=== PATIENT | male | born 1990 | race Caucasian/White ===

== ENCOUNTER 2021-10-01 00:40 | Emergency (ER) | payer SELFPAY ==
[~2021-10-01] VITALS: Ht 177.8 cm; Wt 70.3 kg
[2021-10-01 01:00] VITALS: BP_SYST 118
--- NOTE | 2021-10-01 01:00 | NUR ---
Patient to ER bed 6 to gown for evaluation. Side rails up. Report given to HILLARY CARRION.
--- NOTE | 2021-10-01 01:07 | NUR ---
ER at bedside examining patient.
--- NOTE | 2021-10-01 01:22 | NUR ---
Pt BIB friend to ED C/O after drinking alcohol earlier presents after having stumbled in his driveway sustaining blunt facial trauma and incurring a laceration to the inner aspect of the upper lip in addition to blunt nasal trauma causing left-sided epistaxis. Patient is with full recall of the events denies loss of consciousness, alteration of consciousness and presents on his own accord for evaluation.
[2021-10-01] MEDS ORDERED: DIPH-TET-PERTUS Vaccine 0.5 ML VIAL (ADACEL) I.M. ONE (01:30)
[2021-10-01] MEDS ORDERED: ACET12.55 PO (01:34)
[2021-10-01] MEDS ORDERED: CLIN300C12 PO (01:34)
--- NOTE | 2021-10-01 01:37 | NUR ---
T Dap Vac well tolerated
--- NOTE | 2021-10-01 02:10 | NUR ---
Dr. Adams bedside for Lac Repair procedure, well tolerated
--- NOTE | 2021-10-01 02:47 | NUR ---
Pt states he is " ready to go home and talk to his friend " outside waiting area
[2021-10-01 02:54] VITALS: BP_SYST 118
--- NOTE | 2021-10-01 02:55 | NUR ---
Patient given written and verbal discharge instructions and verbalizes understanding. DR. WINSOME MANUEL MD discussed with patient the results and treatment provided. Patient in stable condition. ID arm band removed. Rx of TYLENOL/CODEINE, CLINDAMYCIN given. Patient educated on pain management and to follow up with PMD. Pain Scale 0/10 Opportunity for questions provided and answered. Medication side effect fact sheet provided.
[2021-10-01] MEDS ORDERED: IBUPROFEN 600 MG TABLET PO ONE (03:00)
[2021-10-01] MEDS ORDERED: AMOXICILLIN/CLAVULANATE POTASSIUM 875 MG TABLET PO ONE (03:00)
== END 2021-10-01 02:54 | disposition home or self-care (01) ==
LOC: SED 00:40
DX: S01.511A Laceration without foreign body of lip, initial encounter (principal); R04.0 Epistaxis; Z79.899 Other long term (current) drug therapy; W01.198A Fall on same level from slipping, tripping and stumbling with subsequent striking against other object, initial encounter; Y93.89 Activity, other specified; Y92.89 Other specified places as the place of occurrence of the external cause; Y99.8 Other external cause status
CPT/HCPCS: 90715; 99283

== ENCOUNTER 2021-10-03 15:43 | Emergency (ER) | payer MEDICAID ==
[~2021-10-03] VITALS: Ht 177.8 cm; Wt 72.6 kg
[~2021-10-03 15:43] MED LIST: ACET12.55 PO; CLIN300C12 PO
[2021-10-03 15:50] VITALS: BP_SYST 120
[2021-10-03] MEDS ORDERED: IBUP-2018 PO (16:19)
[2021-10-03 16:20] VITALS: BP_SYST 120
== END 2021-10-03 16:21 | disposition home or self-care (01) ==
LOC: SED 15:43
DX: S01.511D Laceration without foreign body of lip, subsequent encounter (principal); Z76.0 Encounter for issue of repeat prescription; Z79.899 Other long term (current) drug therapy; W45.8XXD Other foreign body or object entering through skin, subsequent encounter
CPT/HCPCS: 99281

== ENCOUNTER 2021-10-03 23:19 | Emergency (ER) | payer MEDICAID ==
[~2021-10-03] VITALS: Ht 177.8 cm; Wt 72.6 kg
[~2021-10-03 23:19] MED LIST changes: +IBUP-2018 PO
[2021-10-03 23:25] VITALS: BP_SYST 131
[2021-10-04] MEDS ORDERED: KETOROLAC TROMETHAMINE 60 MG/2 ML VIAL IM ONE (01:45)
[2021-10-04 03:39] VITALS: BP_SYST 131
== END 2021-10-04 03:40 | disposition home or self-care (01) ==
LOC: SED 23:19
DX: S00.83XA Contusion of other part of head, initial encounter (principal); S50.312A Abrasion of left elbow, initial encounter; Z79.899 Other long term (current) drug therapy; Y04.0XXA Assault by unarmed brawl or fight, initial encounter; Y93.89 Activity, other specified; Y92.89 Other specified places as the place of occurrence of the external cause; Y99.8 Other external cause status
CPT/HCPCS: 70450-TC; 70486-TC; 76376; 99284